=== PATIENT | female | born 1975 | race Two or more races ===

== ENCOUNTER 2017-05-12 18:49 | Emergency (ER) | payer OTHER ==
[~2017-05-12] VITALS: Ht 167.6 cm; Wt 99.8 kg
[~2017-05-12 18:49] MED LIST: BUSPIRONE HCL5 MG; DALMANE30 MG; ESTAZOLAM2 MG; KETO10TA2 PO; KLONOPIN0.5 MG/TAB; LITHIUM CARBON150 MG; LUNESTA1 MG; PAXIL30 MG
[2017-05-12] MEDS ORDERED: REMERON15 M1 PO (19:03)
[2017-05-12] MEDS ORDERED: RESTORIL15 M1 PO (19:04)
[2017-05-12] MEDS ORDERED: LITHIUM CARBON300 M1 PO (19:05)
== END 2017-05-12 21:24 | disposition home or self-care (01) ==
LOC: ER 18:49
DX: M62.838 Other muscle spasm (principal)

== ENCOUNTER → 2017-11-15 11:26 | Outpatient (CLI) | payer OTHER ==
[~2017-11-15 11:26] MED LIST changes: +LITHIUM CARBON300 M1 PO; +REMERON15 M1 PO; +RESTORIL15 M1 PO
== END | disposition home or self-care (01) ==
LOC: LAB 11:26
DX: R05 Cough (principal); R06.02 Shortness of breath; J20.8 Acute bronchitis due to other specified organisms

== ENCOUNTER 2017-11-15 12:11 | Outpatient (CLI) | payer OTHER | END 2017-11-15 12:18 | disposition home or self-care (01) | LOC: RAD 12:11 | DX: R05 Cough (principal); R06.02 Shortness of breath; J20.8 Acute bronchitis due to other specified organisms ==

== ENCOUNTER 2018-04-01 08:20 | Outpatient (CLI) | payer OTHER ==
[2018-04-01] MEDS ORDERED: SYNTHROID50 MCG (14:32)
[2018-04-01] MEDS ORDERED: TRICOR48 MG (14:32)
== END 2018-04-01 08:30 | disposition home or self-care (01) ==
LOC: RAD 08:20
DX: I10 Essential (primary) hypertension (principal)

== ENCOUNTER 2018-04-01 14:14 | Emergency (ER) | payer OTHER ==
[~2018-04-01] VITALS: Ht 167.6 cm; Wt 105.7 kg
[2018-04-01] MEDS ORDERED: SYNTHROID50 MCG (14:32)
[2018-04-01] MEDS ORDERED: TRICOR48 MG (14:32)
== END 2018-04-01 18:33 | disposition home or self-care (01) ==
LOC: ER 14:14
DX: N39.0 Urinary tract infection, site not specified (principal); R10.31 Right lower quadrant pain

== ENCOUNTER 2018-04-04 06:33 | Day surgery (SDC) | payer OTHER ==
[~2018-04-04 06:33] MED LIST changes: +SYNTHROID50 MCG; +TRICOR48 MG
== END 2018-04-04 16:30 | disposition home or self-care (01) ==
LOC: CIR.AMB 06:33 → ADM 07:00 → CIR.AMB 08:45
DX: D24.1 Benign neoplasm of right breast (principal)

== ENCOUNTER 2019-02-21 19:03 | Emergency (ER) | payer OTHER ==
[~2019-02-21] VITALS: Ht 170.2 cm; Wt 100.2 kg
== END 2019-02-21 21:32 | disposition home or self-care (01) ==
LOC: ER 19:03
DX: M62.830 Muscle spasm of back (principal)

== ENCOUNTER 2020-06-07 18:45 | Emergency (ER) | payer OTHER ==
[~2020-06-07] VITALS: Ht 167.6 cm; Wt 103.4 kg
[2020-06-07] MEDS ORDERED: TRICOR145 MG (19:10)
[2020-06-07] MEDS ORDERED: METFORMIN HCL500 M3 (19:15)
[2020-06-07] MEDS ORDERED: SYNTHROID88 MCG (19:16)
== END 2020-06-07 20:49 | disposition home or self-care (01) ==
LOC: ER 18:45
DX: J32.8 Other chronic sinusitis (principal); J11.1 Influenza due to unidentified influenza virus with other respiratory manifestations; Z11.52 Encounter for screening for COVID-19

== ENCOUNTER 2020-06-19 13:34 | Emergency (ER) | payer OTHER ==
[~2020-06-19] VITALS: Ht 167.6 cm; Wt 104.3 kg
[~2020-06-19 13:34] MED LIST changes: +METFORMIN HCL500 M3; +SYNTHROID88 MCG; +TRICOR145 MG
[2020-06-19] MEDS ORDERED: ULTRAM50 MG PO (16:21)
[2020-06-19] MEDS ORDERED: MACROBID 100 M100 MG PO (16:27)
== END 2020-06-19 16:15 | disposition home or self-care (01) ==
LOC: ER 13:34
DX: N39.0 Urinary tract infection, site not specified (principal); N83.292 Other ovarian cyst, left side; N83.291 Other ovarian cyst, right side; R10.2 Pelvic and perineal pain

== ENCOUNTER 2020-06-24 10:07 | Emergency (ER) | payer OTHER ==
[~2020-06-24] VITALS: Ht 167.6 cm; Wt 105.2 kg
[~2020-06-24 10:07] MED LIST changes: +MACROBID 100 M100 MG PO; +ULTRAM50 MG PO
[2020-06-24] MEDS ORDERED: ZOLOFT25 MG PO (10:20)
== END 2020-06-24 16:15 | disposition home or self-care (01) ==
LOC: ER 10:07
DX: R10.2 Pelvic and perineal pain (principal)

== ENCOUNTER 2020-07-29 10:30 | Inpatient (IN) | payer OTHER ==
[~2020-07-29] VITALS: Ht 167.6 cm; Wt 60.8 kg
[~2020-07-29 10:30] MED LIST changes: +ZOLOFT25 MG PO
[2020-07-29] MEDS ORDERED: SYNTHROID88 MCG PO (11:45)
[2020-07-29] MEDS ORDERED: REMERON30 MG PO (11:46)
[2020-07-29] MEDS ORDERED: TRICOR145 MG PO (11:46)
[2020-08-08] MEDS ORDERED: PERCOCET 5-3251 EACH PO (07:44)
== END 2020-08-08 10:19 | disposition home or self-care (01) | DRG 743 ==
LOC: O/R 08-05 05:18 → MEDI 08-05 05:18 → OB/GYN 08-05 07:00 → MEDI 08-05 19:55 → OB/GYN 08-06 18:10
PROVIDERS: ADMIT Specialist; ATTEND Specialist
PROC: 0UT20ZZ Resection of Bilateral Ovaries, Open Approach (ICD-10-PCS; 2020-08-05)
PROC: 0UT70ZZ Resection of Bilateral Fallopian Tubes, Open Approach (ICD-10-PCS; 2020-08-05)
PROC: 0UT90ZZ Resection of Uterus, Open Approach (ICD-10-PCS; principal; 2020-08-05 07:00)
DX: D25.1 Intramural leiomyoma of uterus (principal); D25.2 Subserosal leiomyoma of uterus; D27.1 Benign neoplasm of left ovary; N80.1 Endometriosis of ovary; N83.8 Other noninflammatory disorders of ovary, fallopian tube and broad ligament; I10 Essential (primary) hypertension; E03.8 Other specified hypothyroidism; E11.9 Type 2 diabetes mellitus without complications; E78.5 Hyperlipidemia, unspecified; F41.9 Anxiety disorder, unspecified

== ENCOUNTER 2021-05-09 08:27 | Outpatient (CLI) | payer OTHER ==
[~2021-05-09 08:27] MED LIST changes: +PERCOCET 5-3251 EACH PO; +REMERON30 MG PO; +SYNTHROID88 MCG PO; +TRICOR145 MG PO
== END 2021-05-09 08:39 | disposition home or self-care (01) ==
LOC: MAMO-SONO 08:27
PROVIDERS: ATTEND General Practice
DX: Z12.31 Encounter for screening mammogram for malignant neoplasm of breast (principal); N60.19 Diffuse cystic mastopathy of unspecified breast; Z11.52 Encounter for screening for COVID-19; Z12.11 Encounter for screening for malignant neoplasm of colon; Z11.3 Encounter for screening for infections with a predominantly sexual mode of transmission; Z11.4 Encounter for screening for human immunodeficiency virus [HIV]; Z13.228 Encounter for screening for other metabolic disorders; Z13.220 Encounter for screening for lipoid disorders; Z13.0 Encounter for screening for diseases of the blood and blood-forming organs and certain disorders involving the immune mechanism; Z13.1 Encounter for screening for diabetes mellitus; Z13.29 Encounter for screening for other suspected endocrine disorder

== ENCOUNTER 2021-06-12 14:01 | Emergency (ER) | payer OTHER ==
[~2021-06-12] VITALS: Ht 167.6 cm; Wt 98.9 kg
== END 2021-06-12 18:28 | disposition home or self-care (01) ==
LOC: ER 14:01
DX: B34.9 Viral infection, unspecified (principal); Z20.822 Contact with and (suspected) exposure to COVID-19; E11.9 Type 2 diabetes mellitus without complications; Z79.84 Long term (current) use of oral hypoglycemic drugs

== ENCOUNTER 2021-12-30 15:34 | Emergency (ER) | payer OTHER ==
[~2021-12-30] VITALS: Ht 167.6 cm; Wt 100.2 kg
[2021-12-30] MEDS ORDERED: METFORMIN HCL500 M4 PO (16:09)
[2021-12-30] MEDS ORDERED: FENOFIBRATE145 MG PO (16:09)
[2021-12-30] MEDS ORDERED: OSEL75CA PO (20:13)
== END 2021-12-30 20:24 | disposition home or self-care (01) ==
LOC: ER 15:34
DX: B34.9 Viral infection, unspecified (principal); Z20.822 Contact with and (suspected) exposure to COVID-19

== ENCOUNTER 2022-04-18 08:37 | Outpatient (CLI) | payer OTHER ==
[~2022-04-18 08:37] MED LIST changes: +FENOFIBRATE145 MG PO; +METFORMIN HCL500 M4 PO; +OSEL75CA PO
== END 2022-04-18 08:47 | disposition home or self-care (01) ==
LOC: SONOGRAMA 08:37
PROVIDERS: ATTEND General Practice
DX: M54.50 Low back pain, unspecified (principal); R22.2 Localized swelling, mass and lump, trunk; N63.31 Unspecified lump in axillary tail of the right breast; M25.531 Pain in right wrist; R22.31 Localized swelling, mass and lump, right upper limb

== ENCOUNTER → 2022-05-17 | Outpatient (CLI) | payer OTHER | END | disposition home or self-care (01) | LOC: SONOGRAMA 09:17 | PROVIDERS: ATTEND Pathology Anatomic Pathology & Clinical Pathology | DX: L72.0 Epidermal cyst (principal); R22.31 Localized swelling, mass and lump, right upper limb ==

== ENCOUNTER 2023-03-15 08:18 | Outpatient (CLI) | payer OTHER | END 2023-03-15 08:37 | disposition home or self-care (01) | LOC: SONOGRAMA 08:18 | PROVIDERS: ATTEND Specialist | DX: L72.0 Epidermal cyst (principal); M77.31 Calcaneal spur, right foot; M54.59 Other low back pain ==

== ENCOUNTER 2023-03-25 16:28 | Outpatient (CLI) | payer OTHER | END 2023-03-25 16:32 | disposition home or self-care (01) | LOC: SONOGRAMA 16:28 | PROVIDERS: ATTEND Pathology Anatomic Pathology & Clinical Pathology | DX: N63.31 Unspecified lump in axillary tail of the right breast (principal) ==

== ENCOUNTER 2023-11-19 15:53 | Emergency (ER) | payer OTHER ==
[~2023-11-19] VITALS: Ht 167.6 cm; Wt 101.6 kg
[~2023-11-19 15:53] MED LIST changes: +DICLOFENAC POTA50 MG PO
[2023-11-19] MEDS ORDERED: ORPHENADRINE CITRATE 30 MG/ML AMPUL IM STA (17:37)
[2023-11-19] MEDS ORDERED: KETOROLAC TROMETHAMINE 30 MG VIAL IM STA (17:37)
[2023-11-19 17:55] LABS: HEMOGLOBIN 14.5 g/dL (12.0-15.00); MEAN CELL VOLUME 84.9 fL (80.00-100.00); MEAN CORPUSCULAR HEMOGLOBIN 28.7 pg (27.00-32.0); MEAN CORPUSCULAR HGB CONC 33.8 g/dl (32.0-36.0); PLATELET COUNT 302 K/uL (150-450); RED BLOOD COUNT 5.07 M/uL (4.00-6.00); RED CELL DISTRIBUTION WIDTH 13.1 % (11.5-14.5)
[2023-11-19 18:14] LABS: CALCIUM 9.4 mg/dL (8.5-10.1); GFR 59.18; POTASSIUM 3.88 mEq/L (3.5-5.1)
[2023-11-19] MEDS ORDERED: NORFLEX100MG PO (19:13)
[2023-11-19] MEDS ORDERED: KETO10TA2 PO (19:13)
== END 2023-11-19 19:16 | disposition home or self-care (01) ==
LOC: ER 15:54
PROVIDERS: General Practice
DX: M94.0 Chondrocostal junction syndrome [Tietze] (principal); R07.89 Other chest pain; E03.8 Other specified hypothyroidism; F41.8 Other specified anxiety disorders; F41.0 Panic disorder [episodic paroxysmal anxiety]
CPT/HCPCS: 36415; 71046; 96372; 99283; J1885; J2360

== ENCOUNTER 2024-02-29 15:13 | Emergency (ER) | payer OTHER ==
[~2024-02-29] VITALS: Ht 162.6 cm; Wt 104.3 kg
[~2024-02-29 15:13] MED LIST changes: +NORFLEX100MG PO
[2024-02-29] MEDS ORDERED: ORPHENADRINE CITRATE 30 MG/ML AMPUL IM ONE (17:15)
[2024-02-29] MEDS ORDERED: KETOROLAC TROMETHAMINE 30 MG VIAL IM ONE (17:15)
[2024-02-29] MEDS ORDERED: ORPHENADRINE CITRATE 30 MG/ML AMPUL ONE (18:10)
[2024-02-29] MEDS ORDERED: KETOROLAC TROMETHAMINE 30 MG VIAL ONE ×2 (18:10→18:11)
== END 2024-02-29 18:32 | disposition home or self-care (01) ==
LOC: ER 15:15
DX: H54.50 Low vision, one eye, unspecified eye (principal); F41.0 Panic disorder [episodic paroxysmal anxiety]; F32.89 Other specified depressive episodes; E03.8 Other specified hypothyroidism; M62.830 Muscle spasm of back
CPT/HCPCS: 72040; 72100; 96372; 99283; J1885; J2360

== ENCOUNTER 2024-05-07 07:05 | Outpatient (CLI) | payer OTHER | END 2024-05-07 14:21 | disposition home or self-care (01) | LOC: MAMO-SONO 07:05 | PROVIDERS: ATTEND General Practice | DX: E04.1 Nontoxic single thyroid nodule (principal); F17.200 Nicotine dependence, unspecified, uncomplicated; M41.86 Other forms of scoliosis, lumbar region; M54.10 Radiculopathy, site unspecified; N63 Unspecified lump in breast; Z12.31 Encounter for screening mammogram for malignant neoplasm of breast; Z11.3 Encounter for screening for infections with a predominantly sexual mode of transmission; Z12.11 Encounter for screening for malignant neoplasm of colon; Z13.21 Encounter for screening for nutritional disorder; Z12.4 Encounter for screening for malignant neoplasm of cervix; Z13.1 Encounter for screening for diabetes mellitus; Z13.29 Encounter for screening for other suspected endocrine disorder; Z13.220 Encounter for screening for lipoid disorders; Z13.820 Encounter for screening for osteoporosis; N39.0 Urinary tract infection, site not specified ==

== ENCOUNTER 2024-10-10 04:06 | Emergency (ER) | payer OTHER ==
[~2024-10-10] VITALS: Ht 172.7 cm; Wt 90.7 kg
[2024-10-10] MEDS ORDERED: KETOROLAC TROMETHAMINE 60 MG VIAL IM STA (05:17)
[2024-10-10] MEDS ORDERED: DEXAMETHASONE SODIUM PHOSPHATE 4 MG/ML VIAL IM STA (05:18)
[2024-10-10] MEDS ORDERED: TRAMADOL HCL 50 MG TABLET PO STA (05:18)
== END 2024-10-10 06:26 | disposition home or self-care (01) ==
LOC: ER 04:06
DX: S73.192A Other sprain of left hip, initial encounter (principal)